=== PATIENT | male | born 1940 | race Caucasian/White ===

== ENCOUNTER → 2018-10-25 05:34 | Day surgery (SDC) | payer MEDICARE ==
--- NOTE | 2018-10-22 10:45 | HP ---
HISTORY AND PHYSICAL: DATE OF ADMISSION: 10/25/18 CHIEF COMPLAINT: End-stage renal disease. HISTORY OF PRESENT ILLNESS: The patient is a 77-year-old male with progressive history of end-stage renal disease, currently at stage 3, not requiring hemodialysis, but potentially may require hemodialysis within the next 6 months. For this reason, the patient is being admitted to the hospital at this time for creation of an arteriovenous fistula. The end-stage renal disease is related to polycystic kidney disease. PAST MEDICAL HISTORY: The patient's past medical history is remarkable for the present illness kidney disease that has been progressive. The patient had a myocardial infarction in 2009. The patient has 2 stents placed in the coronaries. He also has a history of appendectomy in the past. He has history of hypertension, history of hearing loss, and history of arthritis. MEDICATIONS: His current medications include: 1. Amlodipine 10 mg p.o. daily. 2. Aspirin 81 mg p.o. daily. 3. Atorvastatin 80 mg p.o. daily. 4. Vitamin D3 1000 units p.o. daily. 5. Lisinopril 10 mg half tablet p.o. daily. 6. Metoprolol ER 50 mg tablets, 1.5 tablets p.o. daily. ALLERGIES: The patient has no known allergies. FAMILY HISTORY: Remarkable for father had heart disease, mother had a stroke. SOCIAL HISTORY: The patient is retired. He does not smoke and rarely drinks alcohol. PHYSICAL EXAMINATION VITAL SIGNS: Height 72 inches, weight 222 pounds, blood pressure is 120/64, BMI of 30, pulse of 65, respirations 18. HEAD AND NECK: Reveals no neck nodes or masses. He uses hearing aid and is very hard of hearing. The neck revealed no carotid bruits. No neck masses. LUNGS: The upper chest appears to be unremarkable. No evidence of pacemaker. The lungs are clear to auscultation bilaterally. HEART: Regular without murmurs. ABDOMEN: Soft. No prior abdominal surgeries. EXTREMITIES: The upper extremities reveal excellent palpable pulses at the axillary, brachial, radials; ulnars are present but weaker. The lower extremity examination reveals no edema, no varicose veins, and palpable lower extremity pulses. The patient had a preoperative upper extremity mapping that reveals that he has left wrist cephalic vein of 3.3 mm, less than 5 mm deep and this is a suitable vein for the creation of an arteriovenous fistulas, specifically Gregg-Brescia fistula. The plan for this fistula is that the patient is planning to do home hemodialysis and self cannulation. DIAGNOSTIC IMPRESSION: Stage 3 renal disease. The patient is likely to undergo dialysis within the next 6 months to a year. The patient is being electively admitted for placement of an arteriovenous fistula on the left wrist. The patient understands the potential complications including but not exclusive of others such as bleeding, thrombosis, the inability of the fistula to mature, which there is a possibility of 30% of the fistula never being able to be used as such, and the possibility in the future that he may need converted to a different type of access for hemodialysis. This was discussed with the patient and his . They understand that there are potential complications, also the possibility of numbness in the wrist including permanent numbness. The patient understands, agrees, and wishes to proceed with the surgery. Again, the plan is to proceed with placement of a left wrist radiocephalic fistula. [id number]/[facility]PS #: [id number] MTDJohn
[~2018-10-25 05:34] MED LIST: Buffered Lidocaine 1% SYRIN* 1 ML/SYRINGE INTRADERM ONE; Bupivacaine 0.25% W/EPI* 10 ML SDV ONE; Dexamethasone TAB* 4 MG ONE; Dexamethasone TAB* 4 MG PO ONE; DiMENhydriNATE IV* 50 MG/ML VIAL IV PUSH PRN; Famotidine IV* 10 MG/ML 2 ML (20 mg) IV ONE; Famotidine IV* 10 MG/ML 2 ML (20 mg) ONE; Heparin 2 UNITS/ML IVPREMIX* 1,000 ML IV ONE; Heparin DIALYSIS ONLY(*) 1,000 UNITS/ML VIAL ONE; Heparin VIAL(*) 5000 UNITS/ML VIAL (FIVE THOUSAND) ONE; KETAMINE HCL* 50 MG/ML 10 ML VIAL ONE; Lactated Ringers 1000 ML Bag* 1,000 ML IV SCH; Lidocaine 1% INJ* 10 MG/ML 30 ML SDV ONE; Lidocaine 2% PF * 5 ML VIAL ONE; Midazolam* 1 MG/ML 5 ML VIAL (5 MG) ONE; Morphine 4 MG/ML VIAL (1 ml) 4 MG/ML VIAL IV PRN; NS 0.45% 1000 ML BAG* 1,000 ML IV SCH; Naloxone* 0.4 MG/ML 1 ML VIAL IV PRN; Ondansetron ODT TAB* 4 MG ONE; Ondansetron ODT TAB* 4 MG PO ONE; PROCHLORPERAZINE INJ 5 MG/ML 2 ML VIAL IV PRN; Propofol* 500 MG/50 ML BTL ONE; ceFAZolin 2 GM in NS PREMIX(*) 2 GM/100 ML BAG IVPB ONE; fentaNYL* 50 MCG/ML 2 ML VIAL (100 MCG VIAL) IV PRN; fentaNYL* 50 MCG/ML 2 ML VIAL (100 MCG VIAL) ONE; oxyCODONE/Acetamin 5/325 MG* TAB PO PRN
[2018-10-25 10:25] VITALS: BP 126/70
--- NOTE | 2018-10-25 11:07 | OP ---
DATE OF OPERATION: 10/25/18 [facility] DATE OF : 44 SURGEON: Alex Perez MD. WAREHOUSE FREIGHT HANDLER: Minerva Watkins NP. ANESTHESIA: Local plus MAC. PRE-OP DIAGNOSIS: End-stage renal disease. POST-OP DIAGNOSIS: End-stage renal disease. OPERATIVE PROCEDURE: Left radiocephalic arteriovenous fistula. ESTIMATED BLOOD LOSS: None. INDICATIONS: The patient is a 77-year-old male with end-stage renal disease, likely to start hemodialysis within the next year. For this reason, the patient is undergoing creation of left arteriovenous fistula. DESCRIPTION OF PROCEDURE: The patient was taken to the operating room. He was placed in the supine position. He had undergone proper identification of patient, site of surgery. He received preoperative antibiotics. He was then placed in the supine position. He underwent sedation. He was then prepped and draped in the usual sterile fashion. Proper time-out was performed and we then proceeded with the surgery. Ultrasound mapping of the vein and the artery were done and after this was done, lidocaine 1% was used to infiltrate the lateral aspect of the left wrist. An up and down incision at the level of the wrist was done in between the cephalic vein and the brachial artery. The incision was carried down through skin and subcutaneous tissue. Bleeders were controlled by electrocoagulation. After this was completed, we then proceeded to dissect and identify the cephalic vein. This was then dissected proximally and distally. A smaller branch was tied off in between 4-0 silks and divided. The radial artery was then also exposed and encircling vessel loops proximally and distally. After this was done, we then proceeded to disconnect the cephalic vein at the base of the wrist. The distal end was ligated with 4-0 Vicryl and the proximal end on the vein was then spatulated with Ramsey scissors and we then proceeded to dilate it with coronary dilators, stating with 1 mm and going up to 2.5 mm and 3 mm. We then irrigated with heparinized saline using an [place] needle and this irrigated well. After this was completed, the patient received 2500 units of heparin. Five minutes later we cross- clamped the artery distally and proximally and an arteriotomy was performed with an 11- blade on the radial artery. After this, the incision was extended with Ramsey scissors and we then proceeded to perform an end-to-side anastomosis, connecting the cephalic vein to the radial artery. Using 7-0 Prolene in a parachute technique, we proceeded to perform the anastomosis in a continuous manner. This was done uneventfully and after the anastomosis was completed, the distal end of the clamp was released and then the proximal end. A thrill was noted, there was excellent Doppler signal distal to the anastomosis, and there was excellent Doppler signal to the mid arm. After this was done, the incision was checked for hemostasis. No bleeding was noted and we then proceeded to close the subcutaneous tissue with interrupted 4-0 Vicryl suture and the skin with a subcuticular 5-0 Monocryl. The patient tolerated the procedure well and was taken in good condition to the recovery room. [id number]/[facility] #: [id number] BREANA
== END | disposition home or self-care (01) ==
LOC: OR 05:34
PROVIDERS: ATTEND Surgery
DX: I12.9 Hypertensive chronic kidney disease with stage 1 through stage 4 chronic kidney disease, or unspecified chronic kidney disease (principal); N18.3 Chronic kidney disease, stage 3 (moderate); Q61.3 Polycystic kidney, unspecified; I25.2 Old myocardial infarction; Z95.5 Presence of coronary angioplasty implant and graft; M19.90 Unspecified osteoarthritis, unspecified site; I25.10 Atherosclerotic heart disease of native coronary artery without angina pectoris
CPT/HCPCS: 93005; A9270-GY; J0690; J1644; J2250; J2704; J3010; J8540

== ENCOUNTER 2019-02-03 10:56 | Emergency (ER) | payer MEDICARE ==
--- OUTSIDE RECORDS SUMMARY | 2019-02-03 11:11 | XMS REPORT | Continuity of Care Document ---
:1940 External Reference #:[id number] Author Name Danish Munson M.D., [facility], [facility] (transmitted by agent of provider Cinda Elias) Address [address] 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.D., [facility], Onset: 2016 [place] coronary artery without angina [facility] pectoris Thoracic aortic ectasia Danish Munson M.D., [facility], Onset: 01/16/2018 [facility] Essential hypertension Danish Munson M.D., [facility], Onset: 01/14/2019 [facility] Social History Type Date Description Comments Sex Unknown Tobacco Use Start: Unknown Never Smoked Cigarettes Smoking Status Reviewed: 01/14/19 Never Smoked Cigarettes ETOH Use Drinks Alcoholic Beverages Occasionally Tobacco Use Start: Unknown Patient has never smoked Recreational Drug Use Denies Drug Use Exercise Type/Frequency Exercises sporadically Allergies, Adverse Reactions, Alerts Active Allergies Reaction Severity Comments Date Alcides Inhibitors 12/17/2013 Medications Active Medications SIG Qnty Indications Ordering Date Provider Lisinopril 1/2 tab by mouth 30tabs Mohammad A. 01/09/2019 10mg every day: ordered MD Yusuf Tablets by office rn in [facility] patient reports no issue in 1 year taking this medication Nitrostat one sl q5min up to 3 30tabs Danish Chavez 01/08/2015 0.4mg doses as needed Zbigniew Munson, Tablets Sub KEEGAN GARCIA Metoprolol Tartrate 1 1/2 by mouth twice Unknown a day 50mg Tablets Aspirin Ec 1 by mouth every day 90tabs Unknown 81mg Tablets Atorvastatin Calcium 1/2 tab by mouth 90tabs Unknown every day 80mg Tablets Amlodipine Besylate 1 tablet by mouth Unknown every day 10mg Tablets Vitamin D3 High 1 by mouth every day Unknown Potency 1000Unit Capsules Carbamoxide Ear instill 5 gtts in Unknown Drops both ears twice a 6.5% Solution day for ear wax as needed Medications Administered in Office Medication SIG Qnty Indications Ordering Provider Date Inj, Regadenoson, 0.1 MG Danish Munson M.D., 01/10/2016 Injection KEEGAN GARCIA Technetium TC 99M Danish Munson M.D., 01/10/2016 Tetrofosmin, Per Unit Dose KEEGAN GARCIA Up To 40 Millicuries Injection Immunizations Description No Information Available Vital Signs Date Vital Result Comment 01/14/2019 1:11pm Height 72 inches 6'0" Weight 225.00 lb with shoes BP Systolic Sitting 120 mmHg BP Diastolic Sitting 80 mmHg BP Systolic Standing 116 mmHg BP Diastolic Standing 80 mmHg BMI (Body Mass Index) 30.5 kg/m2 Ejection Fraction 55-60% date 01/03/19 ECHO 01/09/2019 10:16am Height 72 inches 6'0" Weight 228.00 lb Heart Rate 58 /min BP Systolic Sitting 132 mmHg R arm BP Diastolic Sitting 66 mmHg R arm O2 % BldC Oximetry 98 % BMI (Body Mass Index) 30.9 kg/m2 Results Description No Information Available Procedures Date Code Description Status 01/14/2019 41820 EKG Tracing & Interpretation Completed 01/03/2019 68725 ECHO Transthoracic, Real-Time 2D With Doppler And Color Completed Flow 01/03/2019 46345 ECHO Transthoracic, Real-Time 2D With Doppler And Color Completed Flow Medical Devices Description No Information Available Encounters Type Date Location Provider Dx Diagnosis Office Visit 01/09/2019 [facility] Surendra High I12.9 Hypertensive chronic 10:00a MD Yusuf kidney disease w stg 1-4/unsp chr kdny N18.4 Chronic kidney disease, stage 4 (severe) Q61.2 Polycystic kidney, adult type E78.5 Hyperlipidemia, unspecified I10 Essential (primary) hypertension Assessments Date Code Description Provider 01/14/2019 I77.810 Thoracic aortic ectasia Danish Munson M.D., [facility], [facility] 01/14/2019 I10 Essential (primary) hypertension Danish Munson M.D., [facility] , [facility] 01/09/2019 I12.9 Hypertensive chronic kidney disease Surendra Goldberg MD with stage 1 through stage 4 chronic kidney disease, or unspecified chronic kidney disease 01/09/2019 N18.4 Chronic kidney disease, stage 4 Surendra Goldberg MD (severe) 01/09/2019 Q61.2 Polycystic kidney, adult type Surendra Goldberg MD 01/09/2019 E78.5 Hyperlipidemia, unspecified Surendra Goldberg MD 01/09/2019 I10 Essential (primary) hypertension Surendra Goldberg MD 01/03/2019 I77.810 Thoracic aortic ectasia Danish Munson M.D., [facility], [facility] 01/03/2019 I77.810 Thoracic aortic ectasia Ica ECHO Schedule Plan of Treatment Future Appointment(s):09/11/2019 10:30 am - Surendra Goldberg MD at [facility] Eelxgxqayy57/01/2019 - Danish Munson M.D., [facility], KCCIBY81.810 Thoracic aortic ectasiaNew Orders:Echocardiogram, Ordered: 01/14/19Comments:As discussed , your aorta is stable but your lung pressure is now a little high so I would like you to walk for exercise year round and continue to avoid lifting more than 30 lbs. Your heart strength remains normal.Follow up:one year after echoI10 Essential (primary) hypertensionComments:Your high blood pressure is well controlled. Functional Status Description No Information Available Mental Status Description No Information Available Referrals Description No Information Available
--- OUTSIDE RECORDS SUMMARY | 2019-02-03 11:11 | XMS REPORT | Continuity of Care Document ---
:1940 External Reference #:[id number] Author Name Surendra Goldberg MD (transmitted by agent of provider Jeanie Stewart) Address [address] [place] [address] Care Team Providers Name Role Phone [facility] - Care Team Information Website Programmer Clinic/Center Problems Active Problems Provider Date Aneurysm of thoracic aorta Danish Munson M.D., [facility], Onset: 12/17/2013 [facility] Chronic ischemic heart disease, Danish Munson M.D., [facility], Onset: 2014 unspecified [facility] Thoracic aortic ectasia Danish Munson M.D., [facility], Onset: 01/16/2018 [facility] Atherosclerotic heart disease of Danish Munson M.D., [facility], Onset: 2016 [place] coronary artery without angina [facility] pectoris Social History Type Date Description Comments Sex Unknown Tobacco Use Start: Unknown Never Smoked Cigarettes Smoking Status Reviewed: 01/09/19 Never Smoked Cigarettes ETOH Use Drinks Alcoholic Beverages Occasionally Tobacco Use Start: Unknown Patient has never smoked Recreational Drug Use Denies Drug Use Exercise Type/Frequency Exercises sporadically Allergies, Adverse Reactions, Alerts Active Allergies Reaction Severity Comments Date Alcides Inhibitors 12/17/2013 Medications Active Medications SIG Qnty Indications Ordering Date Provider Lisinopril 1/2 tab by mouth 30tabs Surendra High 01/09/2019 10mg every day: ordered MD Yusuf Tablets by community affairs director in [facility] patient reports no issue in 1 year taking this medication Nitrostat one sl q5min up to 3 30tabs Danish Chavez 01/08/2015 0.4mg doses as needed Zbigniew Munson, Tablets Sub [facility], [facility] Metoprolol Tartrate 1 1/2 by mouth twice Unknown a day 50mg Tablets Aspirin Ec 1 by mouth every day 90tabs Unknown 81mg Tablets DR Atorvastatin Calcium 1/2 tab by mouth 90tabs Unknown every day 80mg Tablets Proventil HFA 2 puffs by mouth 2units Unknown every 4 hours 108(90Base) mcg/Act Aerosol Amlodipine Besylate 1/2 by mouth every Unknown day 10mg Tablets Vitamin D3 High 1 by mouth every day Unknown Potency 1000Unit Capsules Carbamoxide Ear instill 5 gtts in Unknown Drops both ears twice a 6.5% Solution day for ear wax as needed Medications Administered in Office Medication SIG Qnty Indications Ordering Provider Date Inj, Regadenoson, 0.1 MG Danish Munson M.D., 01/10/2016 Injection FACC, [facility]AS[facility] Technetium TC 99M Danish Munson M.D., 01/10/2016 Tetrofosmin, Per Unit Dose FACKEEGAN Kuo Up To 40 Millicuries Injection Immunizations Description No Information Available Vital Signs Date Vital Result Comment 01/09/2019 10:16am Height 72 inches 6'0" Weight 228.00 lb Heart Rate 58 /min BP Systolic Sitting 132 mmHg R arm BP Diastolic Sitting 66 mmHg R arm O2 % BldC Oximetry 98 % BMI (Body Mass Index) 30.9 kg/m2 01/16/2018 11:33am Height 72 inches 6'0" Weight 220.00 lb Heart Rate 59 /min BP Systolic Sitting 115 mmHg BP Diastolic Sitting 60 mmHg BP Systolic Standing 120 mmHg BP Diastolic Standing 60 mmHg Respiratory Rate 16 /min Pain Level 0 O2 % BldC Oximetry 97 % BMI (Body Mass Index) 29.8 kg/m2 Results Description No Information Available Procedures Date Code Description Status 01/03/2019 10337 ECHO Transthoracic, Real-Time 2D With Doppler And Color Completed Flow Medical Devices Description No Information Available Encounters Description No Information Available Assessments Date Code Description Provider 01/09/2019 I12.9 Hypertensive chronic kidney disease with Surendra Goldberg MD stage 1 through stage 4 chronic kidney disease, or unspecified chronic kidney disease 01/09/2019 N18.4 Chronic kidney disease, stage 4 (severe) Surendra Goldberg MD 01/09/2019 E78.5 Hyperlipidemia, unspecified Surendra Goldberg MD 01/09/2019 I10 Essential (primary) hypertension Surendra Goldberg MD 01/09/2019 Q61.2 Polycystic kidney, adult type Surendra Goldberg MD 01/03/2019 I77.810 Thoracic aortic ectasia Ica ECHO Schedule Plan of Treatment Future Appointment(s):09/11/2019 10:30 am - Surendra Goldberg MD at [facility] [place]15/01/2019 1:45 pm - Danish Munson M.D., FACC, [facility] at [facility]01/09/2019 - Surendra Goldberg MDI12.9 Hypertensive chronic kidney disease with stage 1 through stage 4 chronic kidney disease, or unspecified chronic kidney gjijujdV48.4 Chronic kidney disease, stage 4 (severe) Follow up:6 moE78.5 Hyperlipidemia, adnezwohsoqV31 Essential (primary) lqjzhultfodxA74.2 Polycystic kidney, adult type Functional Status Description No Information Available Mental Status Description No Information Available Referrals Description No Information Available
--- NOTE | 2019-02-03 11:18 | ED ---
Lower Extremity - HPI Summary HPI Summary: Pt is a 78 y/o M presenting to the ED for a chief complaint of left LE pain for one week. Pt is present with his . Pt was emptying a sanitation tank after which pt began to feel left LE pain the following morning. Pt states the pain is mostly in the left thigh and left knee. Pt reports a shooting pain when bearing weight on the left LE. Pt describes the pain as a dull ache, but when bearing weight and walking, the pain has a sharp sensation. Pt states the pain was previously on the bilateral hips and back. Pt denies any fever, chills, diaphoresis, erythema of eyes, sore throat, CP, SOB, cough, abdominal pain, N/V , dysuria, hematuria, back pain, left hip pain, edema, rash, or dizziness. Pt was unable to sit up without supporting himself or rolling over. Pt has been taking aspirin, and using cold and hot compresses with limited relief. Pt denies any recent falls. Pt has a PMHx of cardiac problems, but denies a PMHx of blood clots. Pt has a PSHx of fistula surgery in October 2018. Pt is not currently on dialysis. Pt denies tobacco use or alcohol use. Pt saw Dr. Danish Munson recently and had bloodwork, an EKG, and an echocardiogram performed. Pt is planning on traveling to [place] on 02/10/19. - History of Current Complaint Chief Complaint: EDExtremityLower Stated Complaint: LEG PAIN Time Seen by Provider: 02/03/19 11:08 Hx Obtained From: Patient Mechanism Of Injury: Other - Heavy lifting of a sanitation tank Onset of Pain: Days Onset/Duration: Days Severity Initially: Severe Severity Currently: Severe Pain Intensity: 7 Pain Scale Used: 0-10 Numeric Timing: Constant, Lasting Days Location: Is Discrete @ - Left LE, mostly left thigh and left knee Character Of Pain: Sharp - When bearing weight or walking, Dull - When at rest, Aching - When at rest Associated Signs And Symptoms: Positive: Knee Pain - Left. Negative: Swelling, Fever, Dizziness, Abdominal Pain Aggravating Factor(s): Movement - Walking, Weight Bearing Alleviating Factor(s): OTC Meds - Limited relief with aspirin, Nothing Able to Bear Weight: Yes - Pain when bearing weight - Allergies/Home Medications Allergies/Adverse Reactions: Allergies Allergy/AdvReac Type Severity Reaction Status Date / Time ibuprofen Allergy See Comment Verified 02/03/19 11:02 PMH/Surg Hx/FS Hx/Imm Hx Previously Healthy: Yes Endocrine/Hematology History: Denies: Hx Diabetes Cardiovascular History: Reports: Hx Coronary Artery Disease - 2 cardiac stents 2009, Hx Hypercholesterolemia, Hx Hypertension - On medications, Other Cardiovascular Problems/Disorders - Elevated cholesterol; denies Hx blood clots Denies: Hx Deep Vein Thrombosis, Hx Embolism Respiratory History: Reports: Hx Sleep Apnea Denies: Other Respiratory Problems/Disorders GI History: Reports: Other GI Disorders - Appendectomy as a child History: Reports: Hx Renal Disease - polycystic Denies: Other Problems/Disorders Musculoskeletal History: Reports: Hx Arthritis Denies: Other Musculoskeletal History Sensory History: Reports: Hx Cataracts - beginning stages of cataracts, Hx Contacts or Glasses - Glasses, Hx Hearing Aid - Bilateral hearing aids Denies: Hx Legally Blind, Hx Deafness Opthamlomology History: Reports: Hx Cataracts - beginning stages of cataracts, Hx Contacts or Glasses - Glasses Denies: Hx Legally Blind EENT History: Denies: Hx Deafness Neurological History: Denies: Other Neuro Impairments/Disorders - Surgical History Surgical History: Yes Surgery Procedure, Year, and Place: 2 Cardiac Stents 2009. Nasal septoplasty. Appendectomy as a child. Fistula surgery in October 2018 Hx Anesthesia Reactions: No Infectious Disease History: No Infectious Disease History: Denies: Traveled Outside the [place] in Last 30 Days - Family History Known Family History: Negative: Diabetes - Social History Lives: With Family Alcohol Use: Rare Hx Substance Use: No Substance Use Type: Reports: None Hx Tobacco Use: No Smoking Status (MU): Never Smoked Tobacco Review of Systems Negative: Fever, Chills, Skin Diaphoresis Negative: Erythema Negative: Sore Throat Negative: Chest Pain Negative: Shortness Of Breath, Cough Negative: Abdominal Pain, Vomiting, Nausea Negative: dysuria, hematuria Positive: Arthralgia - Positive left knee; negative left hip pain, Myalgia - Positive in left LE; negative back pain. Negative: Edema Negative: Rash Neurological: Other - Negative dizziness All Other Systems Reviewed And Are Negative: Yes Physical Exam - Summary Physical Exam Summary: Constitutional: Well-developed, Well-nourished, Alert. (-) Distressed Skin: Warm, Dry HENT: Normocephalic; Atraumatic Eyes: Conjunctiva normal Neck: Musculoskeletal ROM normal neck. (-) JVD, (-) Stridor, (-) Tracheal deviation Cardio: Rhythm regular, rate normal, Heart sounds normal; Intact distal pulses; The pedal pulses are 2+ and symmetric. Radial pulses are 2+ and symmetric. (-) Murmur Pulmonary/Chest wall: Effort normal. (-) Respiratory distress, (-) Wheezes, (-) Rales Abd: Soft, (-) tenderness, (-) Distension, (-) Guarding, (-) Rebound Musculoskeletal: Full active and passive ROM, no tenderness, swelling, or joint effusions. Lymph: (-) Cervical adenopathy Neuro: Alert, Oriented x3 Psych: Mood and affect Normal Triage Information Reviewed: Yes Vital Signs On Initial Exam: Initial Vitals Temp Pulse Resp BP Pulse Ox 97.6 F 64 18 149/70 100 02/03/19 10:59 02/03/19 10:59 02/03/19 10:59 02/03/19 10:59 02/03/19 10:59 Vital Signs Reviewed: Yes Procedures - Sedation Patient Received Moderate/Deep Sedation with Procedure: No Diagnostics - Vital Signs Vital Signs Temp Pulse Resp BP Pulse Ox 02/03/19 10:59 97.6 F 64 18 149/70 100 - Laboratory Result Diagrams: 02/03/19 11:31 02/03/19 11:31 Lab Statement: Any lab studies that have been ordered have been reviewed, and results considered in the medical decision making process. - Radiology Venous Doppler Study Radiology Interpretation Completed By: Radiologist Summary of Radiographic Findings: Venous Doppler Study IMPRESSION: NO EVIDENCE FOR DEEP VENOUS THROMBOSIS. Reviewed by ED physician. Lower Extremity Course/Dx - Course Course Of Treatment: Pt is a 78 y/o M presenting to the ED for a chief complaint of left LE pain for one week. Pt is present with his . Pt was emptying a sanitation tank after which pt began to feel left LE pain the following morning. Pt states the pain is mostly in the left thigh and left knee. Pt reports a shooting pain when bearing weight on the left LE. Pt describes the pain as a dull ache, but when bearing weight and walking, the pain has a sharp sensation. Pt states the pain was previously on the bilateral hips and back. Pt denies any fever, chills, diaphoresis, erythema of eyes, sore throat, CP, SOB, cough, abdominal pain, N/V, dysuria, hematuria, back pain, left hip pain, edema, rash, or dizziness. Pt was unable to sit up without supporting himself or rolling over. Pt has been taking aspirin, and using cold and hot compresses with limited relief. Pt denies any recent falls. Pt has a PMHx of cardiac problems, but denies a PMHx of blood clots. Pt has a PSHx of fistula surgery in October 2018. Pt is not currently on dialysis. Pt denies tobacco use or alcohol use. Pt saw Dr. Danish Munson recently and had bloodwork, an EKG, and an echocardiogram performed. On exam, full active and passive ROM, no tenderness, swelling, or joint effusions. I do not suspect fracture, pt is able to bear weight, no trauma, no bony tenderness. Laboratory abnormal findings: RBC 3.75, Hbg 11.2, Hct 33, chloride 113, carbon dioxide 20, BUN 49, creatinine 3.40, glucose 163. Venous Doppler Study IMPRESSION: NO EVIDENCE FOR DEEP VENOUS THROMBOSIS. Pt will be discharged with a diagnosis of leg strain. Follow up with PCP in 2-3 days. - Diagnoses Provider Diagnoses: Leg strain Discharge ED - Sign-Out/Discharge Documenting (check all that apply): Patient Departure - Discharge - Discharge Plan Condition: Stable Disposition: HOME Patient Education Materials: Knee Pain (ED) Referrals: Yamila Malik [Primary Care Provider] - Additional Instructions: Follow up with your primary care provider in 2-3 days. Take Tylenol for pain. RETURN TO THE EMERGENCY DEPARTMENT FOR CHANGING OR WORSENING SYMPTOMS. - Attestation Statements Document Initiated by Scribe: Yes Documenting Scribe: Abbi Thakkar Provider For Whom Scribe is Documenting (Include Credential): Aftab Le MD Scribe Attestation: IAbbi, scribed for Aftab Le MD on 02/03/19 at 1235. Status of Scribe Document: Ready
[2019-02-03 11:41] LABS: Hematocrit 33 % (42-52); Hemoglobin 11.2 g/dL (14.0-18.0); Mean Corpuscular HGB Conc 34 g/dL (31-36); Mean Corpuscular Hemoglobin 30 pg (27-31); Mean Corpuscular Volume 88 fL (80-94); Mean Platelet Volume 8.3 fL (7.4-10.4); Platelet Count 164 10^3/uL (150-450); Red Blood Count 3.75 10^6 /uL (4.18-5.48); Red Cell Distribution Width 14 % (10-15); White Blood Count 5.6 10^3/uL (3.5-10.8)
[2019-02-03 11:53] LABS: Albumin 3.8 g/dL (3.2-5.2); Albumin/Globulin Ratio 1.3 (1-3); BUN/Creatinine Ratio 14.4 (8-20); Calcium 8.6 mg/dL (8.6-10.3); EGFR African American 21.4 (>60); EGFR Non-African American 17.7 (>60); Potassium 4.5 mmol/L (3.5-5.0); Total Bilirubin 0.3 mg/dL (0.2-1.0); Total Protein 6.8 g/dL (6.4-8.9)
[2019-02-03 12:50] VITALS: BP 132/76
== END 2019-02-03 12:45 | disposition home or self-care (01) ==
LOC: ED 10:56
DX: S86.912A Strain of unspecified muscle(s) and tendon(s) at lower leg level, left leg, initial encounter (principal); X58.XXXA Exposure to other specified factors, initial encounter; Y92.9 Unspecified place or not applicable; I25.10 Atherosclerotic heart disease of native coronary artery without angina pectoris; E78.00 Pure hypercholesterolemia, unspecified; I10 Essential (primary) hypertension; Z95.5 Presence of coronary angioplasty implant and graft; Z79.82 Long term (current) use of aspirin; Z79.899 Other long term (current) drug therapy
CPT/HCPCS: 36415; 80053; 82550; 85027; 99282

== ENCOUNTER 2019-02-07 15:27 | Emergency (ER) | payer MEDICARE ==
--- OUTSIDE RECORDS SUMMARY | 2019-02-07 15:42 | XMS REPORT | Continuity of Care Document ---
:1940 External Reference #:[id number] Author Name Alex Perez (transmitted by agent of provider Malika Amor) Address [address] [facility], [facility] [place] [address] Care Team Providers Name Role Phone Chris Burgos M.D. - Nephrology Care Team Information Carry All Driver [facility] Care Team Information Carry All Driver [phone] Problems Active Problems Provider Date Hypertensive chronic kidney disease with stage 1 Alex Perez Onset: through stage 4 chronic kidney disease, or unspecified chronic kidney disease Chronic kidney disease stage 3 Alex Perez Onset: 10/02/2018 Body mass index 30+ - obesity Alex Perez Onset: 10/02/2018 Social History Type Date Description Comments Sex Unknown ETOH Use Rarely consumes alcohol Tobacco Use Start: Unknown Patient has never smoked Recreational Drug Use Denies Drug Use Smoking Status Reviewed: 07/09/18 Patient has never smoked Allergies, Adverse Reactions, Alerts Description No Known Drug Allergies Medications Active Medications SIG Qnty Indications Ordering Provider Date Amlodipine Besylate po qd Unknown 10mg Tablets Atorvastatin Calcium po qd Unknown 80mg Tablets Metoprolol Succinate ER 1.5 tab po bid Unknown 50mg Tablets ER 24HR D3 Adult po qd Unknown 1000Unit Chewtabs Aspirin 81 1 by mouth every Unknown 81mg Tablets DR day Lisinopril 1/2 tab po qd Unknown 10mg Tablets History Medications Cefadroxil 1 by mouth 14caps I12.9 Alex Perez 10/31/2018 - 500mg twice a day 12/10/2018 Capsules Immunizations CPT Code Status Date Vaccine Lot # [id number] Given 04/17/2016 Pneumococcal Vaccine Vital Signs Date Vital Result Comment 01/16/2019 11:18am Height 72 inches 6'0" Weight 222.00 lb BP Systolic 136 mmHg BP Diastolic 76 mmHg BMI (Body Mass Index) 30.1 kg/m2 Heart Rate 60 /min Respiratory Rate 18 /min Pain Level 0 out of 10 12/10/2018 11:56am Height 72 inches 6'0" Weight 222.00 lb BP Systolic 144 mmHg BP Diastolic 78 mmHg BMI (Body Mass Index) 30.1 kg/m2 Heart Rate 60 /min Respiratory Rate 18 /min Pain Level 0 out of 10 Results Description No Information Available Procedures Date Code Description Status 10/25/2018 74038 Anastomosis Arteriovenous Direct Any Site Completed Medical Devices Description No Information Available Encounters Type Date Location Provider Dx Diagnosis Office Visit 10/02/2018 [facility] An Perezmo I12.9 Hypertensive chronic 1:30p kidney disease w stg 1-4/unsp chr kdny N18.3 Chronic kidney disease, stage 3 (moderate) Q61.2 Polycystic kidney, adult type I25.10 Athscl heart disease of [place] coronary artery w/o ang pctrs Z95.828 Presence of other vascular implants and grafts Z68.30 Body mass index (BMI) 30.0-30.9, adult Assessments Date Code Description Provider 01/16/2019 I12.9 Hypertensive chronic kidney disease with stage 1 Perez Alex through sta 01/16/2019 Z68.30 Body mass index (BMI) 30.0-30.9, adult Perez, Alex 12/10/2018 Q61.2 Polycystic kidney, adult type Perez, Alex 12/10/2018 I12.9 Hypertensive chronic kidney disease with stage 1 Perez, Alex through sta 12/10/2018 N18.3 Chronic kidney disease, stage 3 (moderate) Perez, Alex 12/10/2018 Z95.828 Presence of other vascular implants and grafts Perez, Alex 12/10/2018 Z68.30 Body mass index (BMI) 30.0-30.9, adult Perez, Alex 11/06/2018 I12.9 Hypertensive chronic kidney disease with stage 1 PerezAnmo through sta 11/06/2018 Q61.2 Polycystic kidney, adult type Perez, Alex 11/06/2018 N18.3 Chronic kidney disease, stage 3 (moderate) Perez, Alex 10/31/2018 I12.9 Hypertensive chronic kidney disease with stage 1 Perez, Alex through 10/31/2018 Q61.2 Polycystic kidney, adult type Perez, Alex 10/31/2018 N18.3 Chronic kidney disease, stage 3 (moderate) Perez, Alex 10/25/2018 I12.9 Hypertensive chronic kidney disease with stage 1 Perez, Alex through 10/25/2018 N18.3 Chronic kidney disease, stage 3 (moderate) Perez, Alex 10/25/2018 Q61.2 Polycystic kidney, adult type Perez, Alex 10/11/2018 I12.9 Hypertensive chronic kidney disease with stage 1 Perez, Alex through 10/11/2018 N18.3 Chronic kidney disease, stage 3 (moderate) Perez, Alex 10/11/2018 Q61.2 Polycystic kidney, adult type Perez, Alex 10/11/2018 Z01.818 Encounter for other preprocedural examination Perez, Alex 10/11/2018 Z68.30 Body mass index (BMI) 30.0-30.9, adult Perez, Alex 10/02/2018 I12.9 Hypertensive chronic kidney disease with stage 1 Perez, Alex through 10/02/2018 N18.3 Chronic kidney disease, stage 3 (moderate) Perez, Alex 10/02/2018 Q61.2 Polycystic kidney, adult type Perez, Alex 10/02/2018 I25.10 Athscl heart disease of [place] coronary artery Perez, Alex w/o ang pctrs 10/02/2018 Z95.828 Presence of other vascular implants and grafts Perez, Alex 10/02/2018 Z68.30 Body mass index (BMI) 30.0-30.9, adult Perez, Alex Plan of Treatment No Information Available Functional Status Description No Information Available Mental Status Description No Information Available Referrals Refer to Dr Reason for Referral Status Appt Date Alex Perez M.D. Closed 10/02/2018 [address] [facility] [address] [facility] [place] [address] [phone]
--- OUTSIDE RECORDS SUMMARY | 2019-02-07 15:42 | XMS REPORT | Continuity of Care Document ---
:1940 External Reference #:[id number] Author Name Alex Perez Address [address] [facility], [place] [address] Care Team Providers Name Role Phone Chris Burgos M.D. - Nephrology Care Team Information Trust Administrative Assistant [facility] Care Team Information Trust Administrative Assistant [phone] Problems Active Problems Provider Date Hypertensive chronic [...] CPT Code Status Date Vaccine Lot # [id number] Given 04/17/2016 Pneumococcal Vaccine Vital Signs Date [...] Available Procedures Date Code Description Status 10/25/2018 69100 Anastomosis Arteriovenous Direct Any Site Completed Medical Devices Description No Information Available Encounters Type Date Location Provider Dx Diagnosis Office Visit 10/02/2018 [facility] Alex Perez I12.9 Hypertensive chronic 1:30p kidney disease w stg 1-4/unsp chr kdny N18.3 Chronic kidney disease, stage 3 (moderate) Q61.2 Polycystic kidney, adult type I25.10 Athscl heart disease of [place] coronary artery w/o ang pctrs Z95.828 Presence of other vascular implants and grafts Z68.30 Body mass index (BMI) 30.0-30.9, adult Assessments Date Code Description Provider 01/16/2019 I12.9 Hypertensive chronic kidney disease with stage 1 Perez, Alex through sta 01/16/2019 N18.3 Chronic kidney disease, stage 3 (moderate) Perez, Alex 01/16/2019 Q61.2 Polycystic kidney, adult type Perez, Alex 01/16/2019 Z95.828 Presence of other vascular implants and grafts Perez, [facility] 01/16/2019 Z68.30 Body mass index (BMI) 30.0-30.9, adult Perez, Alex 12/10/2018 Q61.2 Polycystic kidney, adult type Perez, [facility] 12/10/2018 I12.9 Hypertensive chronic kidney disease with stage 1 Perez, Alex through sta 12/10/2018 N18.3 Chronic kidney disease, stage 3 (moderate) Perez, [facility] 12/10/2018 Z95.828 Presence of other vascular implants and grafts Perez, [facility] 12/10/2018 Z68.30 Body mass index (BMI) 30.0-30.9, adult Perez, Alex 11/06/2018 I12.9 Hypertensive chronic kidney disease with stage 1 Perez, Alex through 11/06/2018 Q61.2 Polycystic kidney, adult type Perez, [...] Z01.818 Encounter for other preprocedural examination Perez, [facility] 10/11/2018 Z68.30 Body mass index (BMI) 30.0-30.9, adult Perez, Alex 10/02/2018 I12.9 Hypertensive chronic kidney disease with stage 1 Perez, Alex through 10/02/2018 N18.3 Chronic kidney disease, stage 3 (moderate) Perez, Alex 10/02/2018 Q61.2 Polycystic kidney, adult type Perez, [facility] 10/02/2018 I25.10 Athscl heart disease of [place] coronary artery Perez, Alex w/o ang pctrs 10/02/2018 Z95.828 Presence of other vascular implants and grafts Perez, [facility] 10/02/2018 Z68.30 Body mass index (BMI) 30.0-30.9, adult Perez, Alex Plan of Treatment No Information Available Functional Status Description No Information Available Mental Status Description No Information Available Referrals Refer to Dr Reason for Referral Status Appt Date Alex Perez M.D. Closed 10/02/2018 [address] [facility] [place] [address] [phone]
[2019-02-07] MEDS ORDERED: oxyCODONE TAB* 5 MG TAB PO ONE (17:36)
--- NOTE | 2019-02-07 17:44 | ED ---
Lower Extremity - HPI Summary HPI Summary: patient complains of ongoing left leg pain through anterior left thigh and left hansen x 2 weeks. Pain worse with weightbearing. Patient denies initial traumatic event. Seen here for same symptoms 4 days ago, discharged with diagnosis of neck strain and prescription for tramadol. Also prescribed muscle relaxer by urgent care. Patient states no improvement in symptoms. Ultrasound was negative for DVT on prior visit. Patient is able to ambulate with pain. Denies back pain, swelling of lower extremity, fever, cough, sore throat, CP, SOB, N/V/V abdominal pain, change in urine, change in BM. Denies history of blood clots. - History of Current Complaint Chief Complaint: EDExtremityLower Stated Complaint: GROIN PAIN , LEG PAIN Time Seen by Provider: 02/07/19 16:28 Hx Obtained From: Patient, Family/Orthopedic Specialist Mechanism Of Injury: Unknown Onset of Pain: Days Onset/Duration: Weeks Severity Initially: Mild Severity Currently: Moderate Pain Intensity: 10 Pain Scale Used: 0-10 Numeric Timing: Constant Character Of Pain: Aching, Throbbing Associated Signs And Symptoms: Positive: Negative Aggravating Factor(s): Ambulation, Weight Bearing Alleviating Factor(s): Rest, Elevation Able to Bear Weight: Yes - Allergies/Home Medications Allergies/Adverse Reactions: Allergies Allergy/AdvReac Type Severity Reaction Status Date / Time ibuprofen Allergy See Comment Verified 02/03/19 11:02 PMH/Surg Hx/FS Hx/Imm Hx Endocrine/Hematology History: Denies: Hx Diabetes Cardiovascular History: Reports: Hx Coronary Artery Disease - 2 cardiac stents 2009, Hx Hypercholesterolemia, Hx Hypertension - On medications, Other Cardiovascular Problems/Disorders - Elevated cholesterol; denies Hx blood clots Denies: Hx Deep Vein Thrombosis, Hx Embolism Respiratory History: Reports: Hx Sleep Apnea Denies: Other Respiratory Problems/Disorders GI History: Reports: Other GI Disorders - Appendectomy as a child History: Reports: Hx Renal Disease - polycystic Denies: Other Problems/Disorders Musculoskeletal History: Reports: Hx Arthritis Denies: Other Musculoskeletal History Sensory History: Reports: Hx Cataracts - beginning stages of cataracts, Hx Contacts or Glasses - Glasses, Hx Hearing Aid - Bilateral hearing aids Denies: Hx Legally Blind, Hx Deafness Opthamlomology History: Reports: Hx Cataracts - beginning stages of cataracts, Hx Contacts or Glasses - Glasses Denies: Hx Legally Blind Neurological History: Denies: Other Neuro Impairments/Disorders - Surgical History Surgery Procedure, Year, and Place: 2 Cardiac Stents 2009. Nasal septoplasty. Appendectomy as a child. Fistula surgery in October 2018 Hx Anesthesia Reactions: No Infectious Disease History: No Infectious Disease History: Denies: Traveled Outside the [place] in Last 30 Days - Family History Known Family History: Negative: Diabetes - Social History Alcohol Use: Rare Hx Substance Use: No Substance Use Type: Reports: None Hx Tobacco Use: No Smoking Status (MU): Never Smoked Tobacco Review of Systems Constitutional: Negative Eyes: Negative ENT: Negative Cardiovascular: Negative Respiratory: Negative Gastrointestinal: Negative Genitourinary: Negative Musculoskeletal: Other Skin: Negative Neurological: Negative Psychological: Normal All Other Systems Reviewed And Are Negative: Yes Physical Exam - Summary Physical Exam Summary: No erythema, ecchymosis, deformity, swelling, extra warmth noted to left lower extremity. No pain with palpation of the entire left lower extremity. Full range of motion of ankle, knee and hip. Calf soft nontender. PMS intact distally. Triage Information Reviewed: Yes Vital Signs On Initial Exam: Initial Vitals Temp Pulse Resp BP Pulse Ox 97.2 F 54 16 159/77 99 02/07/19 15:32 02/07/19 15:32 02/07/19 15:32 02/07/19 15:32 02/07/19 15:32 Vital Signs Reviewed: Yes Appearance: Positive: Well-Appearing Skin: Positive: Warm Head/Face: Positive: Normal Head/Face Inspection Eyes: Positive: Normal Neck: Positive: Supple Respiratory/Lung Sounds: Positive: Clear to Auscultation Cardiovascular: Positive: Normal Abdomen Description: Positive: Nontender Musculoskeletal: Positive: Normal Neurological: Positive: Normal Psychiatric: Positive: Normal AVPU Assessment: Alert - [place] Coma Scale Best Eye Response: 4 - Spontaneous Best Motor Response: 6 - Obeys Commands Best Verbal Response: 5 - Oriented Coma Scale Total: 15 Procedures - Sedation Patient Received Moderate/Deep Sedation with Procedure: No Diagnostics - Vital Signs Vital Signs Temp Pulse Resp BP Pulse Ox 02/07/19 15:32 97.2 F 54 16 159/77 99 - Laboratory Lab Statement: Any lab studies that have been ordered have been reviewed, and results considered in the medical decision making process. Lower Extremity Course/Dx - Course Course Of Treatment: patient complains of ongoing left leg pain through anterior left thigh and left hansen x 2 weeks. Pain worse with weightbearing. Patient denies initial traumatic event. Seen here for same symptoms 4 days ago , discharged with diagnosis of neck strain and prescription for tramadol. Also prescribed muscle relaxer by urgent care. Patient states no improvement in symptoms. Ultrasound was negative for DVT on prior visit. Patient is able to ambulate with pain. Denies back pain, swelling of lower extremity, fever, cough , sore throat, CP, SOB, N/V/V abdominal pain, change in urine, change in BM. Denies history of blood clots. Vital signs within normal limits. No indication for imaging. Rx for oxycodone. Patient will follow-up with orthopedics in [place] as he is driving down there Sunday. Patient has been advised not to drive while taking tramadol, muscle relaxer or oxycodone. - Diagnoses Provider Diagnoses: Leg pain, left Discharge ED - Sign-Out/Discharge Documenting (check all that apply): Patient Departure - Discharge Plan Condition: Stable Disposition: HOME Prescriptions: Oxycodone HCl 5 mg PO DAILY 6 Days #6 tablet MDD 1 tab Patient Education Materials: Leg Pain (ED) Referrals: Yamila Malik [Primary Care Provider] - Eloise Bautista MD [Medical Doctor] - Additional Instructions: Take pain medication as prescribed. Do not drive or operate machinery while taking this medication. Follow-up with orthopedics Dr. Bautista here in [place] or with another orthopedist in [place] where you are going. - Billing Disposition and Condition Condition: STABLE Disposition: Home - Attestation Statements Provider Attestation: I was available for consult. This patient was seen by the JANINE. The patient was not presented to, seen by, or examined by me. Cesar Ty MD
[2019-02-07 18:03] VITALS: BP 130/65
== END 2019-02-07 17:55 | disposition home or self-care (01) ==
LOC: ED 15:27
DX: M79.605 Pain in left leg (principal); I25.10 Atherosclerotic heart disease of native coronary artery without angina pectoris; E78.00 Pure hypercholesterolemia, unspecified; I10 Essential (primary) hypertension; Z95.5 Presence of coronary angioplasty implant and graft; Z88.6 Allergy status to analgesic agent; Z79.899 Other long term (current) drug therapy
CPT/HCPCS: 99282; A9270-GY